=== PATIENT | female | born 1985 | race Two or more races ===

== ENCOUNTER 2018-08-14 12:13 | Emergency (ER) | payer OTHER ==
[~2018-08-14] VITALS: Ht 162.6 cm; Wt 98.4 kg
[2018-08-14 12:32] VITALS: BP 141/91
== END 2018-08-14 13:30 | disposition home or self-care (01) ==
LOC: ER 12:13
DX: S20.161A Insect bite (nonvenomous) of breast, right breast, initial encounter (principal); W57.XXXA Bitten or stung by nonvenomous insect and other nonvenomous arthropods, initial encounter; Y93.89 Activity, other specified; Y99.8 Other external cause status; Y92.89 Other specified places as the place of occurrence of the external cause